=== PATIENT | male | born 1950 | race Caucasian/White ===

== ENCOUNTER 2017-02-09 10:51 | Emergency (ER) | payer BC ==
[~2017-02-09] VITALS: Ht 175.3 cm; Wt 82.9 kg
[~2017-02-09 10:51] MED LIST: BENADRYL25 MG PO; BUSPAR5 MG PO; CLONAZEPAM1 MG PO; DOXAZOSIN MESYLA8 MG PO; EFFEXOR75 MG PO; KEFLEX500 MG PO; PRILOSEC OTC20 MG PO; SERTRALINE HCL50 MG PO; VALSARTAN160 MG PO
[2017-02-09] MEDS ORDERED: VIBRAMYCIN100 MG PO (12:27)
[2017-02-09 12:38] VITALS: BP 161/83
== END 2017-02-09 12:40 | disposition home or self-care (01) ==
LOC: EME 10:51
DX: L03.116 Cellulitis of left lower limb (principal); I10 Essential (primary) hypertension; Z87.891 Personal history of nicotine dependence
CPT/HCPCS: 93971; 99281; 99284

== ENCOUNTER 2017-08-25 05:34 | Day surgery (SDC) | payer OTHER ==
[~2017-08-25] VITALS: Ht 175.3 cm; Wt 80.7 kg
[~2017-08-25 05:34] MED LIST changes: +DESYREL 150 MG150 MG PO; +ELAVIL10 MG PO; +FLOMAX0.4 MG PO; +LOSARTAN POTASS50 MG PO; +ULTRAM50 MG PO; +VENTOLIN HFA18 GM IH; +VIBRAMYCIN100 MG PO
[2017-08-25 06:34] VITALS: BP 160/88
[2017-08-25 10:29] LABS: TROP-I INTERPRETATION NEGATIVE; TROPONIN-I < 0.01 ng/mL (0.0-0.30)
[2017-08-25 14:53] VITALS: BP 161/85
[2017-08-25 16:38] LABS: TROP-I INTERPRETATION NEGATIVE; TROPONIN-I 0.02 ng/mL (0.0-0.30)
[2017-08-25 19:37] VITALS: BP 155/71
[2017-08-26 00:10] VITALS: BP 132/66
[2017-08-26 04:01] VITALS: BP 139/78
[2017-08-26 07:26] VITALS: BP 144/81
[2017-08-26 08:09] LABS: HEMATOCRIT 46.8 % (38.0-50.0); MCH 24.9 PG (29.0-34.0); MCHC 32.1 G/DL (30.0-36.0); MCV 77.6 FL (86-99); PLATELET COUNT 244 K/uL (156-360); RBC DIS.WIDTH-SD 44.3 % (39-53); RED BLOOD COUNT 6.03 M/uL (4.00-5.50); WHITE BLOOD COUNT 8.7 K/uL (4.1-10.2)
[2017-08-26 08:44] LABS: ALBUMIN 3.5 G/DL (3.2-4.8); ALKALINE PHOSPHATASE 29 IU/L (3-129); ALT (GPT) 30 IU/L (3-49); AST (GOT) 31 IU/L (2-34); CHLORIDE 104 MEQ/L (99-109); CREATININE 1.1 MG/DL (0.6-1.3); GFR ESTIMATE (CALCULATED) > 59 mL/min/ (58.99-99999); GLUCOSE 97 mg/dL (70-99); POTASSIUM 4.3 MEQ/L (3.7-5.4); SODIUM 136 MEQ/L (136-147); TOTAL PROTEIN 5.7 G/DL (6.4-8.3); UREA NITROGEN (BUN) 16 mg/dL (9-23)
[2017-08-26 10:02] VITALS: BP 128/63
[2017-08-26] MEDS ORDERED: ROXICODONE5 MG PO (11:52)
[2017-08-26] MEDS ORDERED: SENNA-DOCUSATE1 EAC1 PO (11:52)
[2017-08-26 12:18] VITALS: BP 153/77
== END 2017-08-26 12:25 | disposition home or self-care (01) ==
LOC: SDC 05:34 → 2EASTP 09:57 → 2SOUTH 09:57 → ENRESERV 10:06 → SDC 11:28 → ENRESERV 12:43 → 2EASTP 14:41 → SDC 15:43 → 2EASTP 08-26 12:25
PROVIDERS: Student in an Organized Health Care Education/Training Program
DX: K40.90 Unilateral inguinal hernia, without obstruction or gangrene, not specified as recurrent (principal); K42.9 Umbilical hernia without obstruction or gangrene; R94.31 Abnormal electrocardiogram [ECG] [EKG]; I42.9 Cardiomyopathy, unspecified; I10 Essential (primary) hypertension; Z87.891 Personal history of nicotine dependence; Z82.49 Family history of ischemic heart disease and other diseases of the circulatory system; R01.1 Cardiac murmur, unspecified; Q67.7 Pectus carinatum
CPT/HCPCS: 80053; 84484; 85027; 93005; C1727; C1781; G0378; J0131; J0690; J1100; J1170; J2250; J2405; J2710; J2795; J3010; J7120; J7643; S0020